=== PATIENT | female | born 1985 | race Two or more races ===

== ENCOUNTER 2017-12-24 09:07 | Emergency (ER) | payer MEDICAID ==
[~2017-12-24] VITALS: Ht 152.4 cm; Wt 74.8 kg
[2017-12-24 09:13] VITALS: BP 116/75
== END 2017-12-24 10:04 | disposition home or self-care (01) ==
LOC: ER 09:08
DX: H72.91 Unspecified perforation of tympanic membrane, right ear (principal); H66.91 Otitis media, unspecified, right ear; B35.9 Dermatophytosis, unspecified
CPT/HCPCS: 82962-TC; A4606; Z7610

== ENCOUNTER 2018-02-12 20:32 | Emergency (ER) | payer MEDICAID ==
[~2018-02-12] VITALS: Ht 149.9 cm; Wt 86.2 kg
[2018-02-12 20:35] VITALS: BP 144/69
--- NOTE | 2018-02-12 20:56 | NUR ---
BASHIR BUTT AT BEDSIDE FOR EVAL.
[2018-02-12] MEDS ORDERED: DOCUSATE SODIUM LIQ 100 MG/10 ML UDC ONE (21:05)
== END 2018-02-12 21:43 | disposition home or self-care (01) ==
LOC: ER 20:34
DX: H61.21 Impacted cerumen, right ear (principal)
CPT/HCPCS: 82962-TC; A4606; Z7610

== ENCOUNTER 2019-04-21 12:43 | Emergency (ER) | payer MEDICAID, OTHER ==
[~2019-04-21] VITALS: Ht 147.3 cm; Wt 77.1 kg
--- NOTE | 2019-04-21 12:45 | NUR ---
BIB FRIEND 33 YEAR OLD FEMALE C/O LEFT HAND LACERATION; WORK -RELATED. ALERT AND ORIENTED X4 SERBIAN SPEAKER. BREATHING EVEN AND UNLABORED WITH NO DISTRESS NOTED. SKIN INTACT AND WARM TO TOUCH. AWAITING TO BE SEEN BY
[2019-04-21] MEDS ORDERED: LIDOCAINE 1% INJ 50 ML MDV IJ ONE (12:59)
[2019-04-21] MEDS ORDERED: ACETAMINOPHEN ES 500 MG TABLET ONE (13:01)
[2019-04-21] MEDS ORDERED: TDAP [DIPH/PERTUSSIS/TET] 0.5 ML VIAL IM ONE (13:02)
[2019-04-21] MEDS: ACETAMINOPHEN 325 MG TABLET PO ONE (13:06)
[2019-04-21] MEDS: TDAP [DIPH/PERTUSSIS/TET] 0.5 ML VIAL IM ONE (13:06)
--- NOTE | 2019-04-21 14:04 | NUR ---
Patient discharged to home in stable condition. Written and verbal after care instructions given. Patient verbalizes understanding of instruction.
[2019-04-21 14:11] VITALS: BP 110/66
== END 2019-04-21 14:12 | disposition home or self-care (01) ==
LOC: ER 12:43
DX: S61.412A Laceration without foreign body of left hand, initial encounter (principal); E11.9 Type 2 diabetes mellitus without complications; W26.0XXA Contact with knife, initial encounter; Y93.89 Activity, other specified; Y92.89 Other specified places as the place of occurrence of the external cause; Y99.8 Other external cause status
CPT/HCPCS: 12002; 90471; 90715; 99283; A6403; J3490

== ENCOUNTER 2019-04-23 15:29 | Emergency (ER) | payer OTHER | END 2019-04-23 16:30 | disposition home or self-care (01) | DX: S61.412D Laceration without foreign body of left hand, subsequent encounter (principal); E11.9 Type 2 diabetes mellitus without complications; X58.XXXD Exposure to other specified factors, subsequent encounter ==

== ENCOUNTER 2019-04-28 19:50 | Emergency (ER) | payer SELFPAY ==
[~2019-04-28] VITALS: Ht 157.5 cm; Wt 79.4 kg
[2019-04-28 20:02] VITALS: BP 106/68
== END 2019-04-28 20:24 | disposition home or self-care (01) ==
LOC: ER 19:55
DX: S61.412D Laceration without foreign body of left hand, subsequent encounter (principal); E11.9 Type 2 diabetes mellitus without complications; X58.XXXD Exposure to other specified factors, subsequent encounter

== ENCOUNTER 2022-03-30 20:04 | Emergency (ER) | payer SELFPAY ==
[~2022-03-30] VITALS: Ht 147.3 cm; Wt 81.6 kg
[2022-03-30 20:43] VITALS: BP 108/74
[2022-03-30] MEDS ORDERED: HYDR30CR79 TP (21:05)
== END 2022-03-30 23:46 | disposition home or self-care (01) ==
LOC: ER 20:09
DX: L29.9 Pruritus, unspecified (principal); E78.5 Hyperlipidemia, unspecified; E11.9 Type 2 diabetes mellitus without complications
CPT/HCPCS: 82962-TC